=== PATIENT | female | born 1965 | race Caucasian/White ===

== ENCOUNTER → 2020-12-07 | Outpatient (CLI) | payer OTHER ==
[~2020-12-07] MED LIST: BIOTIN PO; CELEBREX200 MG PO; CYCLOBENZAPRINE10 MG PO; GLUCOSAMINE HC500 MG PO; HYDROCODON-ACE1 EAC4 PO; IBUPROFEN600 MG PO; IBUPROFEN800 MG PO; MAGNESIUM500 MG PO; MELATONIN3 MG PO; MULTIVITAMIN1 EACH PO; NAPROSYN500 MG PO; NORCO 7.5-3251 EACH PO; NORFLEX 100 MG100 MG PO; PERCOCET 7.5-31 EACH PO; POTASSIUM99 M1 PO; PROTONIX 40 MG40 M1 PO; VITAMIN D PO; ZANTAC300 MG PO; ZOFRAN ODT 4 MG4 MG PO
[2020-12-07 13:10] LABS: HEMOGLOBIN 12.5 gm/dl (12.3-15.3); RED BLOOD COUNT 4.33 M/UL (4.00-5.10); WHITE BLOOD COUNT 4.7 K/UL (4.5-11.0)
[2020-12-07 13:25] LABS: BUN/CREATININE RATIO 16 (0-10)
== END ==
LOC: OPSV2 12:25
PROVIDERS: Orthopaedic Surgery
DX: Z01.818 Encounter for other preprocedural examination (principal); M75.101 Unspecified rotator cuff tear or rupture of right shoulder, not specified as traumatic; R94.31 Abnormal electrocardiogram [ECG] [EKG]
CPT/HCPCS: 36415; 80048; 85025; 93005

== ENCOUNTER → 2020-12-10 | Day surgery (SDC) | payer OTHER ==
[~2020-12-10] VITALS: Ht 167.6 cm; Wt 76.2 kg
== END | disposition home or self-care (01) ==
LOC: OR 07:39
DX: M75.101 Unspecified rotator cuff tear or rupture of right shoulder, not specified as traumatic (principal); M19.90 Unspecified osteoarthritis, unspecified site; F41.0 Panic disorder [episodic paroxysmal anxiety]; K21.9 Gastro-esophageal reflux disease without esophagitis; I49.9 Cardiac arrhythmia, unspecified; I38 Endocarditis, valve unspecified; Z79.1 Long term (current) use of non-steroidal anti-inflammatories (NSAID); Z79.899 Other long term (current) drug therapy
CPT/HCPCS: C1713; J0171; J0690; J1100; J1885; J2001; J2250; J2704; J2710; J2795; J3010; J7120

== ENCOUNTER 2021-03-23 08:06 | Emergency (ER) | payer OTHER ==
[~2021-03-23 08:06] MED LIST changes: -HYDROCODON-ACE1 EAC4 PO; -IBUPROFEN600 MG PO; -NORFLEX 100 MG100 MG PO
[2021-03-23 09:14] LABS: RED BLOOD COUNT 4.36 M/UL (4.00-5.10); WHITE BLOOD COUNT 5.4 K/UL (4.5-11.0)
[2021-03-23 09:39] LABS: BUN/CREATININE RATIO 16 (0-10)
[2021-03-23] MEDS ORDERED: HYDROCODON-ACE1 EAC4 PO (13:58)
[2021-03-23] MEDS ORDERED: NORFLEX 100 MG100 MG PO (14:03)
[2021-03-23] MEDS ORDERED: IBUPROFEN600 MG PO (14:03)
== END 2021-03-23 13:00 | disposition home or self-care (01) ==
LOC: ER1 08:06
PROVIDERS: Physician Assistant Medical
DX: S06.0X9A Concussion with loss of consciousness of unspecified duration, initial encounter (principal); S42.032A Displaced fracture of lateral end of left clavicle, initial encounter for closed fracture; V49.9XXA Car occupant (driver) (passenger) injured in unspecified traffic accident, initial encounter
CPT/HCPCS: 70450; 71045; 71260; 72125; 73030; 80053; 81001; 85025; 99284; Q9967

== ENCOUNTER → 2021-08-17 | Outpatient (CLI) | payer OTHER ==
[~2021-08-17] MED LIST changes: +HYDROCODON-ACE1 EAC4 PO; +IBUPROFEN600 MG PO; +NORFLEX 100 MG100 MG PO
== END ==
LOC: EXRD 07-22 09:30 → MAMO 10:10
DX: M85.9 Disorder of bone density and structure, unspecified (principal); M81.0 Age-related osteoporosis without current pathological fracture
CPT/HCPCS: 77080

== ENCOUNTER → 2021-10-28 | Outpatient (CLI) | payer OTHER | LOC: KOH-I 10:53 | DX: R41.2 Retrograde amnesia (principal); V49.00XA Driver injured in collision with unspecified motor vehicles in nontraffic accident, initial encounter | CPT/HCPCS: 70450 ==